=== PATIENT | male | born 1950 | race Caucasian/White ===

== ENCOUNTER → 2016-06-10 | Outpatient (CLI) | payer MEDICARE ==
--- NOTE | 2016-06-10 13:34 | REP ---
MAXILLOFACIAL CT WITHOUT CONTRAST: HISTORY: Epistaxis. Bilateral Julia cells are present. Minimal mucosal thickening is present in the maxillary sinuses. The remaining sinuses are clear. Mucosal thickening involves the osteomeatal units. The middle and inferior nasal turbinates are partially paradoxical. There is vivek bullosa of the middle nasal turbinates. There is mild deviation of the nasal septum to the right. A spur is present arising from the right side of the nasal septum. The cribriform plate, medial slade of the orbits and optic canals are intact. The carotid canals form a segment of the posterolateral slade of the sphenoid sinus. IMPRESSION: Sinus mucosal thickening as described above. Signed by Theron Palomo MD 06/10/2016 01:40 P
== END ==
LOC: M RAD 12:53
PROVIDERS: ATTEND Otolaryngology
DX: R04.0 Epistaxis (principal)

== ENCOUNTER → 2017-11-06 | Outpatient (REF) | payer MEDICARE ==
[2017-11-06 22:33] LABS: APPEARANCE, URINE CLOUDY (CLEAR); BACTERIA, URINE AUTO 2+ (NEGATIVE); BILIRUBIN, URINE AUTO NEGATIVE (NEGATIVE); BLOOD, URINE BLOOD 1+ (NEGATIVE); COLOR, URINE YELLOW (YELLOW); GLUCOSE, URINE (UA) AUTO NEGATIVE (NEGATIVE); KETONE, URINE AUTO TRACE mg/dL (NEGATIVE); LEUKOCYTE ESTERASE, URINE AUTO 3+ (NEGATIVE); MUCUS, URINE SMALL (NEGATIVE); NITRITE, URINE AUTO POSITIVE (NEGATIVE); PROTEIN, URINE AUTO 1+ mg/dL (NEGATIVE); RBC, URINE AUTO 4 /HPF (0-3); SPECIFIC GRAVITY URINE AUTO 1.014 (1.002-1.035); SQUAMOUS EPITHELIAL CELL UR AU 0 /HPF (0-6); UROBILINOGEN, URINE AUTO 0.2 mg/dL (0.0-2.0); WBC, URINE AUTO TNTC /HPF (0-3)
== END ==
LOC: M LAB REF 21:59
DX: N39.0 Urinary tract infection, site not specified (principal)
CPT/HCPCS: 81001

== ENCOUNTER → 2017-11-27 | Outpatient (REF) | payer MEDICARE ==
[2017-11-27 18:44] LABS: APPEARANCE, URINE CLOUDY (CLEAR); BACTERIA, URINE AUTO 3+ (NEGATIVE); BILIRUBIN, URINE AUTO NEGATIVE (NEGATIVE); BLOOD, URINE BLOOD 2+ (NEGATIVE); COLOR, URINE YELLOW (YELLOW); GLUCOSE, URINE (UA) AUTO NEGATIVE (NEGATIVE); KETONE, URINE AUTO NEGATIVE (NEGATIVE); LEUKOCYTE ESTERASE, URINE AUTO 3+ (NEGATIVE); MUCUS, URINE SMALL (NEGATIVE); NITRITE, URINE AUTO NEGATIVE (NEGATIVE); PROTEIN, URINE AUTO NEGATIVE (NEGATIVE); RBC, URINE AUTO 3 /HPF (0-3); SPECIFIC GRAVITY URINE AUTO 1.006 (1.002-1.035); SQUAMOUS EPITHELIAL CELL UR AU 0 /HPF (0-6); UROBILINOGEN, URINE AUTO 0.2 mg/dL (0.0-2.0); WBC, URINE AUTO TNTC /HPF (0-3)
== END ==
LOC: M LAB REF 16:59
DX: N39.0 Urinary tract infection, site not specified (principal)
CPT/HCPCS: 81001

== ENCOUNTER → 2018-06-16 | Outpatient (CLI) | payer MEDICARE ==
--- NOTE | 2018-06-21 10:53 | SLEEPCENT ---
DATE OF PROCEDURE: 06/16/2018 ORDERING PROVIDER: TEO Bhatti Nocturnal polysomnography was performed for evaluation of sleep physiology in this patient with excessive somnolence, nonrestorative sleep and a history of significant cardiac disease. 7 hours and 50 minutes of data were reviewed. There were 278 minutes of sleep identified. Sleep latency was prolonged at 36 minutes. REM latency was prolonged at 121 minutes. Sleep architecture was fair with fragmentation in the late portion of the study. Frequent periods of wake were noted. There were two REM cycles. Overall sleep efficiency was only 59.8%. The electrocardiogram showed sinus rhythm with an average heart rate of 50 beats per minute. Some rate variability was noted surrounding respiratory events. Rate ranged 42 to 78. There were 23 respiratory events identified of 10 seconds in duration or greater for an apnea-hypopnea index of 5. The events were not exclusive to sleep stage nor body posture. Significant snoring was noted, and respiratory related arousals occurred 8.4 times per hour. Oxygen desaturations were seen into the 70s. There was minimal limb activity and remaining measures of sleep physiology were normal. IMPRESSION: Obstructive sleep apnea syndrome (G47.33). Apnea-hypopnea index 5. RECOMMENDATIONS Given the profound oxygen desaturations identified and sleep fragmentation seen, the patient should be referred back to the sleep disorder center for pressure therapy. In the interim, alcohol and sedative avoidance should be practiced and caution exercised during the operation of motor vehicles.
== END ==
LOC: M SLEEP 19:35
PROVIDERS: ATTEND Physician Assistant
DX: G47.33 Obstructive sleep apnea (adult) (pediatric) (principal)

== ENCOUNTER → 2018-07-22 | Outpatient (CLI) | payer MEDICARE ==
--- NOTE | 2018-07-27 09:07 | SLEEPCENT ---
DATE OF STUDY: 07/22/2018 ORDERED BY: JV Powell Nocturnal polysomnography was performed for the titration of pressure therapy in this patient with obstructive sleep apnea syndrome. Apnea-hypopnea index of 5. For testing the patient was fit with a [facility] full-face mask of medium size; 4 cm of water pressure were applied to the circuit and the lights were extinguished. 7 hours and 44 minutes of data were reviewed. There were 315 minutes of sleep identified. Sleep latency was mildly prolonged at 21 minutes. Rapid eye movement (REM) latency was normal at 113 minutes. Sleep architecture was fair with some fragmentation. There were 3 REM cycles noted. Overall sleep efficiency 68.9%. The electrocardiogram showed what appeared to be a sinus rhythm at 46 beats per minute. Rate ranged 40-70 beats per minute. Electroencephalogram (EEG) showed normal waveforms for awake and sleep. Respiratory events prompted an increase in CPAP pressure. Best sleep was seen on a CPAP pressure of +10. Minimal limb activity was seen most early in the study. Limb movement arousal index was 5.5. IMPRESSION: Obstructive sleep apnea syndrome (G47.33). RECOMMENDATIONS: Nightly use of pressure therapy 10 cm of water.
== END ==
LOC: M SLEEP 19:45
PROVIDERS: ATTEND Physician Assistant
DX: G47.33 Obstructive sleep apnea (adult) (pediatric) (principal)

== ENCOUNTER 2019-01-18 06:07 | Day surgery (SDC) | payer MEDICARE ==
[~2019-01-18] VITALS: Ht 185.4 cm; Wt 128.0 kg
[~2019-01-18 06:07] MED LIST: AMIO200T PO; AMLO5TAB6 PO; ATOR1TAB21 PO; CARV3.12 PO; ELIQ5TAB PO; LISI10TA4 PO; LR 1,000 ML IV ONE; MAGN400T2 PO; MECL-86 PO
[2019-01-18] MEDS ORDERED: PROPOFOL 200 MG/20 ML VIAL As Ordered ONE (07:10)
[2019-01-18] MEDS ORDERED: LIDOCAINE 2% INJ 100 MG/5 ML SDV (FOR ANES.) As Ordered ONE (07:10)
[2019-01-18] MEDS ORDERED: LR 1,000 ML IV SCH (07:45)
[2019-01-18] MEDS ORDERED: ONDANSETRON 4MG/2ML VIAL (J2405) IV PRN (07:45)
[2019-01-18 08:20] VITALS: BP 141/78
--- NOTE | 2019-01-18 09:31 | RO ---
DATE OF PROCEDURE: 01/18/2019 DIAGNOSIS: Atrial fibrillation. PROCEDURE: Cardioversion. ANESTHESIA: By Dr. Greenfield and Leigha , MERCHANDISING SPECIALIST BRIEF HISTORY: Mr. Brewer is a 68-year-old man who has had persistent atrial fibrillation since September 2018 when it was detected even though the duration may have been a little bit longer. He was started on amiodarone and anticoagulated in October when I saw him in the office. Now he is being brought for elective cardioversion. I talked to the patient about the nature of the procedure, its potential complications and outcomes on outpatient basis. He previously signed appropriate consent. PROCEDURE NOTE: Procedure was performed in recovery room. The patient was on a stretcher. He was n.p.o. for more than 12 hours. When appropriate time out was taken and all monitors were applied, he received sedation by anesthesia. After appropriate level of sedation was achieved with administration of IV propofol, he was cardioverted with 200 joules of energy delivered with defibrillator patches in anterior position in synchronized mode. One shock led to cheondoism of sinus mechanism. There were no immediate complications and the patient tolerated the procedure well. At the time of my dictation, 12-lead ECG is pending. The expectation is that he will be discharged home after brief observation on his chronic medications.
--- NOTE | 2019-01-18 20:33 | ECGEPIP ---
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
--- NOTE | 2019-01-18 20:34 | ECGEPIP ---
[facility] Test Date: 2019-01-18 Pat Name: ARAMIS GRANT Department: Room: - Gender: Male General Ledger Bookkeeper: JANICE : 1950 Requested By: Blayne Mtz Order Number: [id number] Reading MD: Blayne Mtz Measurements Intervals [place] Rate: 53 P: 45 MD: 207 QRS: 36 QRSD: 99 T: 44 QT: 471 QTc: 444 Interpretive Statements SINUS BRADYCARDIA NONSPECIFIC T-WAVE ABNORMALITY SINUS RHYTHM REPLACED ATRIAL FIBRILLATION SINCE 6:52 SAME DAY Electronically Signed on 01-18-2019 20:34:30 EST by Blayne Mtz
== END 2019-01-18 08:43 | disposition home or self-care (01) ==
LOC: M SDC 06:07
PROVIDERS: ATTEND Internal Medicine Cardiovascular Disease
DX: I48.19 Other persistent atrial fibrillation (principal); I10 Essential (primary) hypertension; E78.00 Pure hypercholesterolemia, unspecified; H81.09 Meniere's disease, unspecified ear; R06.83 Snoring; G47.33 Obstructive sleep apnea (adult) (pediatric); N40.0 Benign prostatic hyperplasia without lower urinary tract symptoms; Z79.899 Other long term (current) drug therapy; Z79.01 Long term (current) use of anticoagulants; Z87.891 Personal history of nicotine dependence; Z68.37 Body mass index [BMI] 37.0-37.9, adult

== ENCOUNTER → 2019-04-27 | Outpatient (REF) | payer MEDICARE ==
[~2019-04-27] MED LIST changes: -LR 1,000 ML IV ONE
[2019-04-27 16:56] LABS: BLOOD UREA NITROGEN 14 MG/DL (7-18); CALCIUM LEVEL 9.1 MG/DL (8.8-10.2); CARBON DIOXIDE LEVEL 25 MEQ/L (21-32); CHLORIDE LEVEL 105 MEQ/L (98-107); CREATININE FOR GFR 1.01 MG/DL (0.70-1.30); GLOMERULAR FILTRATION RATE > 60.0 (>49); GLUCOSE, FASTING 101 MG/DL (70-100); POTASSIUM SERUM 3.5 MEQ/L (3.5-5.1); SODIUM LEVEL 137 MEQ/L (136-145)
== END ==
LOC: M LABDRWCV 16:08
PROVIDERS: ATTEND Internal Medicine Cardiovascular Disease
DX: I48.19 Other persistent atrial fibrillation (principal)

== ENCOUNTER → 2019-07-08 | Outpatient (REF) | payer MEDICARE ==
[2019-07-08 16:46] LABS: HEMATOCRIT 44.9 % (42.0-52.0); MEAN CORPUSCULAR HEMOGLOBIN 33.3 pg (27.0-33.0); MEAN CORPUSCULAR HGB CONC 33.4 g/dl (32.0-36.5); MEAN CORPUSCULAR VOLUME 99.6 fl (80.0-96.0); PLATELET COUNT, AUTOMATED 217 10^3/uL (150-450); RED BLOOD COUNT 4.51 10^6/uL (4.30-6.10); WHITE BLOOD COUNT 4.7 10^3/uL (4.0-10.0)
[2019-07-08 16:53] LABS: BLOOD UREA NITROGEN 18 MG/DL (7-18); CALCIUM LEVEL 8.6 MG/DL (8.8-10.2); CARBON DIOXIDE LEVEL 26 MEQ/L (21-32); CHLORIDE LEVEL 107 MEQ/L (98-107); CREATININE FOR GFR 0.98 MG/DL (0.70-1.30); FREE T4 1.15 NG/DL (0.76-1.46); GLOMERULAR FILTRATION RATE > 60.0 (>49); GLUCOSE, FASTING 94 MG/DL (70-100); POTASSIUM SERUM 3.9 MEQ/L (3.5-5.1); SODIUM LEVEL 139 MEQ/L (136-145); VITAMIN B12 LEVEL 515 PG/ML (247-911)
== END ==
LOC: M SFHCCLAY 10:00
PROVIDERS: ATTEND Family Medicine
DX: E53.8 Deficiency of other specified B group vitamins (principal); E03.9 Hypothyroidism, unspecified; I11.9 Hypertensive heart disease without heart failure; I48.19 Other persistent atrial fibrillation

== ENCOUNTER → 2019-07-29 | Outpatient (CLI) | payer MEDICARE ==
[2019-07-29 15:28] LABS: BASO % 0.7 % (0.0-1.0); EOS # 0.1 10^3/uL (0.0-0.5); EOS % 1.2 % (0.0-3.0); HEMATOCRIT 46.5 % (42.0-52.0); HEMOGLOBIN 15.7 g/dl (13.5-17.5); LYMPH # 1.4 10^3/uL (1.5-5.0); LYMPH % 24.7 % (24.0-44.0); MEAN CORPUSCULAR HEMOGLOBIN 33.2 pg (27.0-33.0); MEAN CORPUSCULAR HGB CONC 33.8 g/dl (32.0-36.5); MEAN CORPUSCULAR VOLUME 98.3 fl (80.0-96.0); MONO # 0.6 10^3/uL (0.0-0.8); MONO % 9.8 % (0.0-5.0); NEUTROPHILS # 3.6 10^3/uL (1.5-8.5); NEUTROPHILS % 63.4 % (36.0-66.0); PLATELET COUNT, AUTOMATED 216 10^3/uL (150-450); RED BLOOD COUNT 4.73 10^6/uL (4.30-6.10); WHITE BLOOD COUNT 5.7 10^3/uL (4.0-10.0)
[2019-07-29 15:57] LABS: BLOOD UREA NITROGEN 15 MG/DL (7-18); CARBON DIOXIDE LEVEL 26 MEQ/L (21-32); CHLORIDE LEVEL 107 MEQ/L (98-107); CREATININE FOR GFR 0.94 MG/DL (0.70-1.30); GLOMERULAR FILTRATION RATE > 60.0 (>49); GLUCOSE, FASTING 96 MG/DL (70-100); NT-PRO BNP 371 PG/ML (<125); POTASSIUM SERUM 3.6 MEQ/L (3.5-5.1); SODIUM LEVEL 140 MEQ/L (136-145)
--- NOTE | 2019-07-30 09:16 | REP ---
REASON FOR EXAM: Dyspnea. COMPARISON: Multiple, the latest 12/23/2011. There is elevation of the diaphragmatic surface of the right lung with a right basilar opacity which has developed since the prior exam. There is right CP angle blunting. There is a subtle irregular density in the right upper lobe. The left lung is clear and stable. The osseous structures are unchanged. IMPRESSION: Abnormal right lung carroll as described above. Etiology uncertain. Contrast enhanced CT examination of the chest is warranted. Electronically Signed by Milad Lew DO 08/01/2019 10:54 A
== END ==
LOC: M LAB 14:32
PROVIDERS: ATTEND Internal Medicine Cardiovascular Disease
DX: I48.19 Other persistent atrial fibrillation (principal); Z79.899 Other long term (current) drug therapy

== ENCOUNTER → 2020-08-08 | Outpatient (CLI) | payer MEDICARE ==
[~2020-08-08] MED LIST changes: -AMIO200T PO; +AMIO200T3 PO; +AMLO1TAB24 PO; -AMLO5TAB6 PO; +ISOVUE-370 76% 100ML VIAL As Ordered ONE; +LISI10TA22 PO; -LISI10TA4 PO
--- NOTE | 2020-08-08 17:00 | REP ---
INDICATION: MASS OF UPPER LOBE OF RT LUNG COMPARISON: None. TECHNIQUE: Standard helical technique after the intravenous administration of 100 cc Isovue 370 FINDINGS: There is no mediastinal or hilar adenopathy. There are no pleural or pericardial effusions. There is a moderate to large hiatal hernia. The imaged upper abdomen shows cholelithiasis as well. The imaged osseous structures are within normal limits. Incidental note is made of a vertebral body hemangioma involving T12. Evaluation of the lung carroll shows an 8 mm size nodule in the right upper lobe abutting an accessory fissure to the right middle lobe and a 5 mm size nodule in the left lower lobe. IMPRESSION: 1. Lung nodules as described above. According to the revised Fleischner society criteria the larger of the 2 nodules represents a lung rads category 4A lesion for which a 3 month follow-up chest CT is recommended. 2. There is cholelithiasis. 3. Other findings as described above. <Electronically signed by Milad Lew > 08/08/20 [id number]
== END ==
LOC: M RAD 15:16
PROVIDERS: ATTEND Family Medicine
DX: R91.8 Other nonspecific abnormal finding of lung field (principal); K80.20 Calculus of gallbladder without cholecystitis without obstruction
CPT/HCPCS: 71260; Q9967

== ENCOUNTER → 2021-01-03 | Outpatient (REF) | payer MEDICARE ==
[~2021-01-03] MED LIST changes: -ISOVUE-370 76% 100ML VIAL As Ordered ONE
[2021-01-03 16:50] LABS: HEMATOCRIT 40.6 % (42.0-52.0); HEMOGLOBIN 13.5 g/dl (13.5-17.5); MEAN CORPUSCULAR HEMOGLOBIN 32.9 pg (27.0-33.0); MEAN CORPUSCULAR HGB CONC 33.3 g/dl (32.0-36.5); PLATELET COUNT, AUTOMATED 210 10^3/uL (150-450); WHITE BLOOD COUNT 5.2 10^3/uL (4.0-10.0)
[2021-01-03 17:31] LABS: ALBUMIN 4.1 GM/DL (3.2-5.2); ALT/SGPT 29 U/L (12-78); BILIRUBIN,TOTAL 0.9 MG/DL (0.2-1.0); BLOOD UREA NITROGEN 10 MG/DL (7-18); CALCIUM LEVEL 9.2 MG/DL (8.8-10.2); CARBON DIOXIDE LEVEL 25 MEQ/L (21-32); CHLORIDE LEVEL 108 MEQ/L (98-107); CHOLESTEROL LEVEL 136 MG/DL (<200); CHOLESTEROL RISK RATIO 2.615 (<5); CREATININE FOR GFR 0.95 MG/DL (0.70-1.30); GLOMERULAR FILTRATION RATE > 60.0 (>42); GLUCOSE, FASTING 89 MG/DL (70-100); HDL CHOLESTEROL 52 MG/DL (>40); LDL CHOLESTEROL 67 MG/DL (<100); NON-HDL-C 84 MG/DL; SODIUM LEVEL 141 MEQ/L (136-145); TOTAL PROTEIN 7.6 GM/DL (6.4-8.2); TRIGLYCERIDES LEVEL 84 MG/DL (<150)
== END ==
LOC: M SFHCCAPE 10:46
PROVIDERS: ATTEND Family Medicine
DX: R91.8 Other nonspecific abnormal finding of lung field (principal); I48.0 Paroxysmal atrial fibrillation; E03.9 Hypothyroidism, unspecified; E78.5 Hyperlipidemia, unspecified; Z12.5 Encounter for screening for malignant neoplasm of prostate
CPT/HCPCS: 80053; 80061; 84439; 84443; 85027; G0103

== ENCOUNTER → 2021-01-04 | Outpatient (CLI) | payer MEDICARE ==
[~2021-01-04] MED LIST changes: +ISOVUE-370 76% 100ML VIAL ONE
--- NOTE | 2021-01-04 15:16 | REP ---
INDICATION: MASS OF UPPER LOBE OF RT LUNG. COMPARISON: CT 08/08/2020, CXR 07/29/2019, 12/23/2011.. TECHNIQUE: Bolus 100 mL Isovue 370 scanning through the chest with coronal and sagittal reconstructions. FINDINGS: Of the lung carroll show elevated of the right diaphragm as before there is some dependent atelectatic change in deep sulcus of the right lower lobe. Lateral segment right middle lobe on image 49 shows the 8 mm nodule unchanged from the 08/08/2020 prior and just below the minor fissure. The previously noted left lower lobe nodule is resolved or obscured in area of subsegmental atelectasis deep sulcus left lower lobe. No pleural effusion, acute infiltrate, parenchymal mass, apical scarring or pneumothorax. There is asymmetric prominence of the right side of the superior mediastinum due to ectatic innominate, subclavian and the common carotid arteries and a mildly prominent prominent right jugular vein a draped over the. This gives the contour defect seen on chest x-ray but is not a mass. Heart shows left atrial and ventricular enlargement is unchanged there is moderate-sized hiatal hernia. There calcifications of the aorta without aneurysm. No pathologic sized mediastinal, hilar, axillary or supraclavicular adenopathy/mass. The main, right and left pulmonary arteries are prominent in the mediastinum most consistent with pulmonary artery hypertension, likely on the basis of COPD. The bone windows show degenerative changes at multiple thoracic levels and an hemangioma of the vertebral body of T12. The visualized ribs, sternum, manubrium, clavicles, scapulae and humeral heads are grossly intact. Upper abdomen shows liver, spleen, visualized portions of pancreas and upper poles of kidneys intact. The gallbladder shows calcified stones in its dependent portion unchanged. Adrenal glands are normal. IMPRESSION: 1. Stable 8 mm nodule lateral segment right middle lobe just below the minor fissure in the left mid lateral lung zone. There are minor dependent atelectatic changes in both lower lung zones with the 5 mm nodule seen in the left lower lobe on previous study either resolved or obscured by subsegmental atelectatic changes deep sulcus laterally in the left lower lobe. 2. Prominence of ectatic appearance to the innominate artery and its branches in the right superior mediastinum. This certainly gives prominence to that lateral contour of the right superior mediastinum but I do not see lung mass on this examination. 3. Left atrial and ventricular enlargement. No pericardial thickening or effusion, mediastinal or hilar adenopathy, aortic aneurysm or dissection other acute finding in the chest. 4. Bones unremarkable. Moderate-sized hiatal hernia. Cholelithiasis. Stable exam. <Electronically signed by Chuy Cardozo > 01/04/21 1271
== END ==
LOC: M PLAIMG 12:46
PROVIDERS: ATTEND Family Medicine
DX: R91.8 Other nonspecific abnormal finding of lung field (principal); R91.1 Solitary pulmonary nodule; K44.9 Diaphragmatic hernia without obstruction or gangrene; K80.80 Other cholelithiasis without obstruction
CPT/HCPCS: 71260; Q9967

== ENCOUNTER → 2021-06-14 | Outpatient (CLI) | payer MEDICARE ==
[~2021-06-14] MED LIST changes: -AMIO200T3 PO; +AMIO200T49 PO; -ISOVUE-370 76% 100ML VIAL ONE; +METO1TAB87; +SUPRSOL2
== END ==
LOC: M LABSMTC 09:40
PROVIDERS: ATTEND Anesthesiology
DX: Z01.812 Encounter for preprocedural laboratory examination (principal); Z20.822 Contact with and (suspected) exposure to COVID-19

== ENCOUNTER 2021-06-19 09:02 | Day surgery (SDC) | payer MEDICARE ==
[~2021-06-19] VITALS: Ht 185.4 cm; Wt 130.6 kg
[~2021-06-19 09:02] MED LIST changes: +LIDOCAINE 2% 100MG/5ML SDV (FOR ANES.) As Ordered ONE; +NS 1,000 ML IV ONE; +propofoL 200 MG/20 ML VIAL As Ordered ONE
[2021-06-19] MEDS ORDERED: fentaNYL 100 MCG/2 ML INJECTION As Ordered ONE (10:39)
[2021-06-19 11:10] VITALS: BP 164/73
== END 2021-06-19 11:25 | disposition home or self-care (01) ==
LOC: M OPP 09:02
PROVIDERS: ATTEND Internal Medicine Gastroenterology
DX: Z12.11 Encounter for screening for malignant neoplasm of colon (principal); Z86.010 Personal history of colon polyps; K64.0 First degree hemorrhoids; K57.30 Diverticulosis of large intestine without perforation or abscess without bleeding; I48.91 Unspecified atrial fibrillation; I10 Essential (primary) hypertension; E78.5 Hyperlipidemia, unspecified; G47.30 Sleep apnea, unspecified; Z79.01 Long term (current) use of anticoagulants; Z79.899 Other long term (current) drug therapy
CPT/HCPCS: G0105; J3010

== ENCOUNTER → 2021-09-17 | Outpatient (CLI) | payer MEDICARE ==
[~2021-09-17] MED LIST changes: -LIDOCAINE 2% 100MG/5ML SDV (FOR ANES.) As Ordered ONE; -NS 1,000 ML IV ONE; -propofoL 200 MG/20 ML VIAL As Ordered ONE
== END ==
LOC: M SOG 08:11
PROVIDERS: ATTEND Physician Assistant
DX: M79.641 Pain in right hand (principal)

== ENCOUNTER → 2022-01-28 | Outpatient (REF) | payer MEDICARE ==
[2022-01-28 17:06] LABS: HEMATOCRIT 42.8 % (42.0-52.0); HEMOGLOBIN 13.9 g/dl (13.5-17.5); MEAN CORPUSCULAR HEMOGLOBIN 32.6 pg (27.0-33.0); MEAN CORPUSCULAR HGB CONC 32.5 g/dl (32.0-36.5); MEAN CORPUSCULAR VOLUME 100.2 fl (80.0-96.0); PLATELET COUNT, AUTOMATED 208 10^3/uL (150-450); RED BLOOD COUNT 4.27 10^6/uL (4.30-6.10)
[2022-01-28 18:09] LABS: FREE T4 1.37 NG/DL (0.89-1.76)
[2022-01-28 18:10] LABS: THYROID STIMULATING HORMONE 2.183 uIU/ML (0.55-4.78)
[2022-01-28 18:16] LABS: ALKALINE PHOSPHATASE 64 U/L (46-116); ALT/SGPT 20 U/L (7.0-40); AST/SGOT 17 U/L (<34); BILIRUBIN,TOTAL 0.7 MG/DL (0.3-1.2); BLOOD UREA NITROGEN 16 MG/DL (9-23); CARBON DIOXIDE LEVEL 26 MMOL/L (20-31); CHLORIDE LEVEL 104 MMOL/L (98-107); CHOLESTEROL LEVEL 130 MG/DL (<200); CHOLESTEROL RISK RATIO 2.85 (<5); CREATININE FOR GFR 0.86 MG/DL (0.70-1.30); GLOMERULAR FILTRATION RATE > 60.0 (>42); GLUCOSE, FASTING 102 MG/DL (74-106); HDL CHOLESTEROL 45.5 MG/DL (>40); LDL CHOLESTEROL 65.9 MG/DL (<100); NON-HDL-C 85 MG/DL; POTASSIUM SERUM 4.5 MMOL/L (3.5-5.1); SODIUM LEVEL 139 MMOL/L (136-145); TOTAL PROTEIN 7.3 G/DL (5.7-8.2); TRIGLYCERIDES LEVEL 93 MG/DL (<150)
== END ==
LOC: M SFHCCAPE 08:44
PROVIDERS: ATTEND Family Medicine
DX: I48.0 Paroxysmal atrial fibrillation (principal); E78.5 Hyperlipidemia, unspecified; I11.9 Hypertensive heart disease without heart failure; E03.9 Hypothyroidism, unspecified; Z12.5 Encounter for screening for malignant neoplasm of prostate
CPT/HCPCS: 80053; 80061; 84439; 84443; 85027; G0103

== ENCOUNTER → 2022-07-16 | Outpatient (REF) | payer MEDICARE ==
[2022-07-16 17:29] LABS: HEMATOCRIT 40.6 % (42.0-52.0); HEMOGLOBIN 13.4 g/dl (13.5-17.5); MEAN CORPUSCULAR HEMOGLOBIN 32.5 pg (27.0-33.0); MEAN CORPUSCULAR VOLUME 98.5 fl (80.0-96.0); PLATELET COUNT, AUTOMATED 204 10^3/uL (150-450); RED BLOOD COUNT 4.12 10^6/uL (4.30-6.10); WHITE BLOOD COUNT 4.4 10^3/uL (4.0-10.0)
[2022-07-16 17:33] LABS: ALBUMIN 3.8 G/DL (3.2-5.2); ALKALINE PHOSPHATASE 60 U/L (46-116); ALT/SGPT 28 U/L (7.0-40); AST/SGOT 16 U/L (<34); BILIRUBIN,TOTAL 0.6 MG/DL (0.3-1.2); BLOOD UREA NITROGEN 15 MG/DL (9-23); CALCIUM LEVEL 8.9 MG/DL (8.3-10.6); CARBON DIOXIDE LEVEL 28 MMOL/L (20-31); CHLORIDE LEVEL 109 MMOL/L (98-107); CHOLESTEROL LEVEL 127 MG/DL (<200); CHOLESTEROL RISK RATIO 3.52 (<5); GLOMERULAR FILTRATION RATE > 60.0 (>42); GLUCOSE, FASTING 101 MG/DL (74-106); LDL CHOLESTEROL 70.2 MG/DL (<100); POTASSIUM SERUM 3.8 MMOL/L (3.5-5.1); SODIUM LEVEL 140 MMOL/L (136-145); TOTAL PROTEIN 6.8 G/DL (5.7-8.2); TRIGLYCERIDES LEVEL 104 MG/DL (<150)
[2022-07-16 17:37] LABS: FREE T4 1.75 NG/DL (0.89-1.76); THYROID STIMULATING HORMONE 0.016 uIU/ML (0.55-4.78)
== END ==
LOC: M SFHCCAPE 08:45
PROVIDERS: ATTEND Family Medicine
DX: E78.5 Hyperlipidemia, unspecified (principal); I48.0 Paroxysmal atrial fibrillation; I11.9 Hypertensive heart disease without heart failure; E03.9 Hypothyroidism, unspecified

== ENCOUNTER → 2022-07-23 | Outpatient (REF) | payer MEDICARE ==
[2022-07-23 17:17] LABS: FREE T4 1.73 NG/DL (0.89-1.76)
[2022-07-23 17:18] LABS: THYROID STIMULATING HORMONE 0.013 uIU/ML (0.55-4.78)
== END ==
LOC: M SFHCADAM 11:50
PROVIDERS: ATTEND Family Medicine
DX: R79.89 Other specified abnormal findings of blood chemistry (principal); Z79.899 Other long term (current) drug therapy

== ENCOUNTER → 2023-02-05 | Outpatient (REF) | payer MEDICARE ==
[2023-02-05 17:38] LABS: ALKALINE PHOSPHATASE 64 U/L (46-116); ALT/SGPT 19 U/L (7.0-40); AST/SGOT 12 U/L (<34); BILIRUBIN,TOTAL 0.8 MG/DL (0.3-1.2); BLOOD UREA NITROGEN 16 MG/DL (9-23); CALCIUM LEVEL 8.8 MG/DL (8.3-10.6); CARBON DIOXIDE LEVEL 30 MMOL/L (20-31); CHLORIDE LEVEL 106 MMOL/L (98-107); CHOLESTEROL LEVEL 130 MG/DL (<200); CHOLESTEROL RISK RATIO 3.11 (<5); CREATININE FOR GFR 0.78 MG/DL (0.70-1.30); FREE T4 1.07 NG/DL (0.89-1.76); GLOMERULAR FILTRATION RATE > 60.0 (>42); GLUCOSE, FASTING 110 MG/DL (74-106); HDL CHOLESTEROL 41.8 MG/DL (>40); LDL CHOLESTEROL 68.6 MG/DL (<100); NON-HDL-C 88.2 MG/DL; PSA SCREENING 1.16 NG/ML (< 4.00); SODIUM LEVEL 141 MMOL/L (136-145); THYROID STIMULATING HORMONE 2.177 uIU/ML (0.55-4.78); TOTAL PROTEIN 7.1 G/DL (5.7-8.2); TRIGLYCERIDES LEVEL 98 MG/DL (<150)
[2023-02-05 17:39] LABS: BASO % 0.6 % (0.0-1.0); EOS # 0.1 10^3/uL (0.0-0.5); EOS % 1.6 % (0.0-3.0); HEMATOCRIT 44.7 % (42.0-52.0); HEMOGLOBIN 14.6 g/dl (13.5-17.5); LYMPH % 41.1 % (24.0-44.0); MEAN CORPUSCULAR HGB CONC 32.7 g/dl (32.0-36.5); MEAN CORPUSCULAR VOLUME 101.1 fl (80.0-96.0); MONO # 0.5 10^3/uL (0.0-0.8); NEUTROPHILS # 2.2 10^3/uL (1.5-8.5); NEUTROPHILS % 45.7 % (36.0-66.0); PLATELET COUNT, AUTOMATED 203 10^3/uL (150-450); RED BLOOD COUNT 4.42 10^6/uL (4.30-6.10); WHITE BLOOD COUNT 4.9 10^3/uL (4.0-10.0)
[2023-02-05 17:47] LABS: HEMOGLOBIN A1c 5.4 % (4.0-6.0)
== END ==
LOC: M SFHCCAPE 08:46
PROVIDERS: ATTEND Family Medicine
DX: I11.9 Hypertensive heart disease without heart failure (principal); E78.5 Hyperlipidemia, unspecified; I48.0 Paroxysmal atrial fibrillation; E03.9 Hypothyroidism, unspecified; R73.03 Prediabetes; Z12.5 Encounter for screening for malignant neoplasm of prostate
CPT/HCPCS: 80053; 80061; 83036; 84439; 84443; 85025; G0103

== ENCOUNTER → 2023-08-05 | Outpatient (REF) | payer MEDICARE ==
[2023-08-05 19:04] LABS: HEMATOCRIT 43.6 % (42.0-52.0); HEMOGLOBIN 14.5 g/dl (13.5-17.5); MEAN CORPUSCULAR HEMOGLOBIN 33.8 pg (27.0-33.0); MEAN CORPUSCULAR HGB CONC 33.3 g/dl (32.0-36.5); MEAN CORPUSCULAR VOLUME 101.6 fl (80.0-96.0); PLATELET COUNT, AUTOMATED 190 10^3/uL (150-450); RED BLOOD COUNT 4.29 10^6/uL (4.30-6.10)
[2023-08-05 19:35] LABS: ALBUMIN 4.1 G/DL (3.2-5.2); ALKALINE PHOSPHATASE 66 U/L (46-116); ALT/SGPT 22 U/L (7.0-40); AST/SGOT 12 U/L (<34); BILIRUBIN,TOTAL 0.9 MG/DL (0.3-1.2); BLOOD UREA NITROGEN 15 MG/DL (9-23); CALCIUM LEVEL 9.3 MG/DL (8.3-10.6); CARBON DIOXIDE LEVEL 29 MMOL/L (20-31); CHLORIDE LEVEL 106 MMOL/L (98-107); CHOLESTEROL LEVEL 131 MG/DL (<200); CHOLESTEROL RISK RATIO 3.01 (<5); CREATININE FOR GFR 0.78 MG/DL (0.70-1.30); FREE T4 1.23 NG/DL (0.89-1.76); GLOMERULAR FILTRATION RATE > 60.0 (>42); GLUCOSE, FASTING 108 MG/DL (74-106); HDL CHOLESTEROL 43.4 MG/DL (>40); LDL CHOLESTEROL 61.8 MG/DL (<100); NON-HDL-C 87.6 MG/DL; POTASSIUM SERUM 4.4 MMOL/L (3.5-5.1); SODIUM LEVEL 140 MMOL/L (136-145); TOTAL PROTEIN 7.3 G/DL (5.7-8.2); TRIGLYCERIDES LEVEL 129 MG/DL (<150)
[2023-08-05 19:36] LABS: THYROID STIMULATING HORMONE 2.984 uIU/ML (0.55-4.78)
[2023-08-05 21:15] LABS: HEMOGLOBIN A1c 5.3 % (4.0-6.0)
== END ==
LOC: M SFHCCAPE 08:48
PROVIDERS: ATTEND Family Medicine
DX: I11.9 Hypertensive heart disease without heart failure (principal); I48.0 Paroxysmal atrial fibrillation; E03.9 Hypothyroidism, unspecified; R73.03 Prediabetes; E78.5 Hyperlipidemia, unspecified

== ENCOUNTER → 2023-10-12 | Outpatient (CLI) | payer MEDICARE | LOC: M PLAIMG 12:31 | PROVIDERS: ATTEND Internal Medicine Pulmonary Disease | DX: R06.00 Dyspnea, unspecified (principal) ==

== ENCOUNTER → 2023-12-07 | Outpatient (CLI) | payer MEDICARE | LOC: M PLAIMG 10:45 | PROVIDERS: ATTEND Internal Medicine Pulmonary Disease | DX: R91.8 Other nonspecific abnormal finding of lung field (principal); K44.9 Diaphragmatic hernia without obstruction or gangrene; I51.7 Cardiomegaly ==

== ENCOUNTER → 2024-02-04 | Outpatient (REF) | payer MEDICARE ==
[2024-02-04 17:53] LABS: HEMATOCRIT 45.5 % (42.0-52.0); MEAN CORPUSCULAR HEMOGLOBIN 33.6 pg (27.0-33.0); MEAN CORPUSCULAR VOLUME 101.8 fl (80.0-96.0); PLATELET COUNT, AUTOMATED 207 10^3/uL (150-450); RED BLOOD COUNT 4.47 10^6/uL (4.30-6.10); WHITE BLOOD COUNT 4.8 10^3/uL (4.0-10.0)
[2024-02-04 18:24] LABS: ALBUMIN 3.8 G/DL (3.2-5.2); ALKALINE PHOSPHATASE 65 U/L (40-129); ALT/SGPT 26 U/L (7.0-40); AST/SGOT 20 U/L (<34); BILIRUBIN,TOTAL 0.8 MG/DL (0.3-1.2); BLOOD UREA NITROGEN 13 MG/DL (9-23); CALCIUM LEVEL 9.4 MG/DL (8.3-10.6); CARBON DIOXIDE LEVEL 28 MMOL/L (20-31); CHLORIDE LEVEL 106 MMOL/L (98-107); CREATININE FOR GFR 0.81 MG/DL (0.70-1.30); GLOMERULAR FILTRATION RATE > 60.0 (>42); GLUCOSE, FASTING 104 MG/DL (74-106); POTASSIUM SERUM 4.5 MMOL/L (3.5-5.1); PSA SCREENING 0.85 NG/ML (< 4.00); SODIUM LEVEL 141 MMOL/L (136-145); TOTAL PROTEIN 7.6 G/DL (5.7-8.2)
== END ==
LOC: M SFHCCAPE 08:51
PROVIDERS: ATTEND Family Medicine
DX: I11.9 Hypertensive heart disease without heart failure (principal); R06.09 Other forms of dyspnea; Z12.5 Encounter for screening for malignant neoplasm of prostate
CPT/HCPCS: 80053; 85027; G0103

== ENCOUNTER 2024-04-11 10:27 | Day surgery (SDC) | payer OTHER, MEDICARE ==
[~2024-04-11] VITALS: Ht 185.4 cm; Wt 138.2 kg
[~2024-04-11 10:27] MED LIST changes: +B-12100010 PO; +LR 1,000 ML IV SCH; +XALA0.007 OU
[2024-04-11] MEDS: CYCLOPENTOLATE 1% OPHTH SOLN 2ML BTL OD SCH (12:29)
[2024-04-11] MEDS: PHENYLEPHRINE 2.5% OPHTH SOL 2ML OD SCH (12:30)
[2024-04-11] MEDS: FLURBIPROFEN 0.03% OPHTH SOLN 2.5 ML OD SCH (12:30)
[2024-04-11] MEDS: TETRACAINE 0.5% OPHTH SOLN 4ML OD SCH (12:30)
[2024-04-11] MEDS ORDERED: METO50TA7 PO (12:50)
[2024-04-11] MEDS: LIDOCAINE 1% SDV 5ML VIAL As Ordered ONE (14:32)
[2024-04-11] MEDS: CEFUROXIME 1MG/0.1ML INTRACAMERAL INJ As Ordered ONE (14:32)
[2024-04-11] MEDS ORDERED: propofoL 200 MG/20 ML VIAL As Ordered ONE (14:33)
[2024-04-11] MEDS ORDERED: LIDOCAINE 2% 100MG/5ML SDV (FOR ANES.) As Ordered ONE (14:33)
[2024-04-11 14:55] VITALS: BP 160/90; TEMP 97.8; O2SAT 97
== END 2024-04-11 15:15 | disposition home or self-care (01) ==
LOC: M SDC 10:27
PROVIDERS: ATTEND Ophthalmology
DX: H25.9 Unspecified age-related cataract (principal); H40.1111 Primary open-angle glaucoma, right eye, mild stage; I48.91 Unspecified atrial fibrillation; Z68.38 Body mass index [BMI] 38.0-38.9, adult; G47.30 Sleep apnea, unspecified; Z79.899 Other long term (current) drug therapy
CPT/HCPCS: 66991; C1783; J0697; V2632

== ENCOUNTER → 2024-05-04 | Outpatient (REF) | payer OTHER, MEDICARE ==
[~2024-05-04] MED LIST changes: -LR 1,000 ML IV SCH; +METO50TA7 PO
== END ==
LOC: M LABDRWCV 17:13
PROVIDERS: ATTEND Nurse Practitioner Acute Care
DX: R06.02 Shortness of breath (principal)

== ENCOUNTER 2024-05-16 10:24 | Day surgery (SDC) | payer MEDICARE, OTHER ==
[~2024-05-16] VITALS: Ht 185.4 cm; Wt 137.8 kg
[~2024-05-16 10:24] MED LIST changes: +FURO20TA2 PO; +LR 1,000 ML IV SCH; +TIMO0.5S20 OD
[2024-05-16] MEDS ORDERED: fentaNYL 100 MCG/2 ML INJECTION As Ordered ONE (10:47)
[2024-05-16] MEDS ORDERED: MIDAZOLAM INJ 2MG/2ML VIAL As Ordered ONE (10:47)
[2024-05-16] MEDS: FLURBIPROFEN 0.03% OPHTH SOLN 2.5 ML OS SCH (11:32)
[2024-05-16] MEDS: TETRACAINE 0.5% OPHTH SOLN 4ML OS SCH (11:32)
[2024-05-16] MEDS: CYCLOPENTOLATE 1% OPHTH SOLN 2ML BTL OS SCH (11:32)
[2024-05-16] MEDS: PHENYLEPHRINE 2.5% OPHTH SOL 2ML OS SCH (11:32)
[2024-05-16] MEDS: LIDOCAINE 1% SDV 5ML VIAL As Ordered ONE (12:43)
[2024-05-16] MEDS: CEFUROXIME 1MG/0.1ML INTRACAMERAL INJ As Ordered ONE (12:43)
[2024-05-16 13:15] VITALS: BP 145/82; TEMP 97.6; O2SAT 96
== END 2024-05-16 13:35 | disposition home or self-care (01) ==
LOC: M SDC 10:24
PROVIDERS: ATTEND Ophthalmology
DX: H40.1121 Primary open-angle glaucoma, left eye, mild stage (principal); H25.12 Age-related nuclear cataract, left eye; I10 Essential (primary) hypertension; E78.00 Pure hypercholesterolemia, unspecified; I48.91 Unspecified atrial fibrillation; G47.30 Sleep apnea, unspecified; Z79.01 Long term (current) use of anticoagulants; Z79.899 Other long term (current) drug therapy; Z98.41 Cataract extraction status, right eye
CPT/HCPCS: 66991; C1783; J0697; J2250; J3010; V2632

== ENCOUNTER 2024-11-06 22:28 | Emergency (ER) | payer MEDICARE ==
[~2024-11-06] VITALS: Ht 185.4 cm; Wt 141.0 kg
[~2024-11-06 22:28] MED LIST changes: -AMIO200T49 PO; +AMIO200T54 PO; -LR 1,000 ML IV SCH
[2024-11-06 22:48] VITALS: TEMP 97.9
[2024-11-07 02:24] LABS: BASO # 0.0 10^3/uL (0.0-0.2); BASO % 0.4 % (0.0-1.0); EOS # 0.0 10^3/uL (0.0-0.5); EOS % 0.3 % (0.0-3.0); LYMPH # 1.4 10^3/uL (1.5-5.0); LYMPH % 19.4 % (24.0-44.0); MONO # 0.4 10^3/uL (0.0-0.8); MONO % 5.4 % (2.0-8.0); NEUTROPHILS # 5.4 10^3/uL (1.5-8.5); NEUTROPHILS % 74.1 % (36.0-66.0); PLATELET COUNT, AUTOMATED 172 10^3/uL (150-450)
[2024-11-07 02:25] LABS: KETONE, URINE AUTO RFX NEGATIVE (NEGATIVE); LEUKOCYTE ESTERASE UR AUTO RFX NEGATIVE (NEGATIVE); NITRITE, URINE AUTO RFX NEGATIVE (NEGATIVE); RBC, URINE AUTO RFX 0 /HPF (0-3); SQUAM EPITHELIAL CELL UR AURFX 0 /HPF (0-6); WBC, URINE AUTO RFX 1 /HPF (0-3)
[2024-11-07 02:39] LABS: D-DIMER QUANT 0.3 ug/mL (<0.5); INR 1.14
[2024-11-07 02:48] LABS: ALT/SGPT 27 U/L (7.0-40); AST/SGOT 18 U/L (<34); CALCIUM LEVEL 8.3 MG/DL (8.3-10.6); CARBON DIOXIDE LEVEL 25 MMOL/L (20-31); CHLORIDE LEVEL 109 MMOL/L (98-107); CK-MB VALUE MASS < 1.0 NG/ML (<3.6); CPK CREATINE PHOSPHOKINASE 50 U/L (46-171); CREATININE FOR GFR 0.79 MG/DL (0.70-1.30); GLOMERULAR FILTRATION RATE > 90.0 (>42); POTASSIUM SERUM 3.9 MMOL/L (3.5-5.1); SODIUM LEVEL 144 MMOL/L (136-145)
[2024-11-07] MEDS ORDERED: ISOVUE-370 76% 100 ML VIAL As Ordered ONE (02:50)
[2024-11-07 04:45] VITALS: BP 155/85; O2SAT 95
== END 2024-11-07 04:57 | disposition home or self-care (01) ==
LOC: M ED 22:28
DX: I10 Essential (primary) hypertension (principal); I51.7 Cardiomegaly; K80.20 Calculus of gallbladder without cholecystitis without obstruction; K76.0 Fatty (change of) liver, not elsewhere classified; K44.9 Diaphragmatic hernia without obstruction or gangrene; I48.91 Unspecified atrial fibrillation; E78.5 Hyperlipidemia, unspecified; F10.10 Alcohol abuse, uncomplicated; Z79.01 Long term (current) use of anticoagulants; Z79.899 Other long term (current) drug therapy
CPT/HCPCS: 36415; 71045; 71275; 74174; 80053; 81001; 82550; 82553; 84484; 85025; 85379; 85610; 85730; 86850; 86900; 86901; 93005; 99284; Q9967

== ENCOUNTER → 2025-02-07 | Outpatient (REF) | payer MEDICARE ==
[2025-02-07 17:42] LABS: PLATELET COUNT, AUTOMATED 213 10^3/uL (150-450)
[2025-02-07 17:47] LABS: ALT/SGPT 23 U/L (7.0-40); AST/SGOT 18 U/L (<34); CALCIUM LEVEL 8.9 MG/DL (8.3-10.6); CARBON DIOXIDE LEVEL 30 MMOL/L (20-31); CHLORIDE LEVEL 103 MMOL/L (98-107); CHOLESTEROL LEVEL 163 MG/DL (<200); CHOLESTEROL RISK RATIO 3.12 (<5); CREATININE FOR GFR 0.80 MG/DL (0.70-1.30); GLOMERULAR FILTRATION RATE > 90.0 (>42); LDL CHOLESTEROL 82.2 MG/DL (<100); NON-HDL-C 110.8 MG/DL; POTASSIUM SERUM 4.2 MMOL/L (3.5-5.1); PSA SCREENING 1.12 NG/ML (< 4.00); SODIUM LEVEL 141 MMOL/L (136-145); TRIGLYCERIDES LEVEL 143 MG/DL (<150)
[2025-02-07 17:58] LABS: ESTIMATED AVERAGE GLUCOSE 117.0 MG/DL (60-110)
== END ==
LOC: M SFHCCAPE 07:54
PROVIDERS: ATTEND Family Medicine
DX: R06.09 Other forms of dyspnea (principal); R73.03 Prediabetes; E78.5 Hyperlipidemia, unspecified; Z12.5 Encounter for screening for malignant neoplasm of prostate
CPT/HCPCS: 80053; 80061; 83036; 85027; G0103